=== PATIENT | female | born 2000 | race Caucasian/White ===

== ENCOUNTER 2020-08-26 16:57 | Emergency (ER) | payer OTHER ==
[~2020-08-26] VITALS: Ht 175.3 cm; Wt 127.0 kg
[2020-08-26 17:21] VITALS: BP 124/69
--- NOTE | 2020-08-26 18:08 | PHYS DOC ---
Past History Past Medical History: Depression, Diabetes, Hypothyroid (KARI JOYNER APRN) Past Surgical History: No Surgical History (KARI JOYNER APRN) Alcohol Use: None (KARI JOYNER APRN) General Adult EDM: Chief Complaint: SORE THROAT HPI: HPI: Patient is a 20-year-old female who presents with sore throat for 2 days. 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 Patient also has a history of seasonal allergies. Patient is reporting a cough and some nasal drainage. Denies fever. Denies shortness of breath. (KARI JOYNER APRN) Review of Systems: Review of Systems: Constitutional: Denies fever or chills Eyes: Denies change in visual acuity HENT: Reports nasal congestion and sore throat Respiratory: Reports cough, denies shortness of breath Cardiovascular: Denies chest pain or edema GI: Denies abdominal pain, nausea, vomiting, bloody stools or diarrhea : Denies dysuria Musculoskeletal: Denies back pain or joint pain Integument: Denies rash Neurologic: Denies headache, focal weakness or sensory changes Endocrine: Denies polyuria or polydipsia Lymphatic: Denies swollen glands Psychiatric: Denies depression or anxiety (KARI JOYNER APRN) Allergies: Allergies: Allergies Coded Allergies Type Severity Reaction Last Updated Verified azithromycin Allergy Intermediate 08/26/20 Yes (KARI JOYNER APRN) Physical Exam: PE: Constitutional: Well developed, well nourished, no acute distress, non-toxic appearance. [] HENT: Normocephalic, atraumatic, bilateral external ears normal, oropharynx moist, no oral exudates, nose normal. [] Eyes: PERRLA, EOMI, conjunctiva normal, no discharge. [] Neck: Normal range of motion, no tenderness, supple, no stridor. [] Cardiovascular:Heart rate regular rhythm, no murmur [] Lungs & Thorax: Bilateral breath sounds clear to auscultation [] Abdomen: Bowel sounds normal, soft, no tenderness, no masses, no pulsatile masses. [] Skin: Warm, dry, no erythema, no rash. [] Back: No tenderness, no CVA tenderness. [] Extremities: No tenderness, no cyanosis, no clubbing, ROM intact, no edema. [] Neurologic: Alert and oriented X 3, normal motor function, normal sensory function, no focal deficits noted. [] Psychologic: Affect normal, judgement normal, mood normal. [] (KARI JOYNER APRN) Current Patient Data: Vital Signs: Vital Signs Date Time Temp Pulse Resp B/P (MAP) Pulse Ox O2 Delivery O2 Flow Rate FiO2 08/26/20 17:21 98.1 85 16 124/69 (87) 96 Room Air (KARI JOYNER APRN) EKG: EKG: [] (KARI JOYNER APRN) Radiology/Procedures: Radiology/Procedures: [] (KARI JOYNER APRN) Heart Score: C/O Chest Pain: No Risk Factors: Risk Factors: DM, Current or recent (<one month) smoker, HTN, HLP, family history of CAD, obesity. Risk Scores: Score 0 - 3: 2.5% MACE over next 6 weeks - Discharge Home Score 4 - 6: 20.3% MACE over next 6 weeks - Admit for Clinical Observation Score 7 - 10: 72.7% MACE over next 6 weeks - Early Invasive Strategies (KARI JOYNER APRN) Course & Med Decision Making: Course & Med Decision Making Pertinent Labs and Imaging studies reviewed. (See chart for details) [] 20-year-old female presents with sore throat for 2 days after working at a youth [employer] for the last week. Afebrile. No oral exudates noted. No tonsillar swelling. Patient is handling her own secretions. Based on clinical assessment no recommendation for strep test. Discussed with patient that symptoms are bas ed on her yelling over the last week at [employer] camp and also her seasonal allergies. Advised patient to gargle with warm salt water, use OTC throat spray, cough drops, and allergy medication. Patient should follow up with PCP or return to emergency room if she has worsening symptoms. Patient states that she understands. Patient and daughter both appreciative and okay with discharge plan. Patient is hemodynamically stable and able to ambulate out of the emergency room (KARI JOYNER APRN) Course & Med Decision Making I oversaw on the above date of service of this patient. This patient was evaluated, examined, treated, and dispositioned from the emergency department by the mid-level practitioner. Although I was working at the time and available for consultation, no assistance was requested and I did not see or immediately direct the care of this patient. I reviewed note and agree to findings, plan of care, and disposition as stated. Electronically signed, Kuldeep Gerard DO (KULDEEP GERARD DO) Melisa Disclaimer: Melisa Disclaimer: This electronic medical record was generated, in whole or in part, using a voice recognition dictation system. (KARI JOYNER APRN) Departure Departure: Impression: Primary Impression: Sore throat Disposition: HOME / SELF CARE / HOMELESS Condition: STABLE Referrals: PCP,UNKNOWN (PCP) Patient Instructions: Sore Throat, [id number] Additional Instructions: You were seen in the emergency room for sore throat and hoarseness. Your symptoms are most likely from you having to speak loudly at youth camp. You can gargle with warm salt water, use throat lozenges, [id number] throat spray. Mucinex will also be helpful in treating your allergy symptoms. Return to the emergency room if you have worsening symptoms or your symptoms do not improve in the next few days. EMERGENCY DEPARTMENT GENERAL DISCHARGE INSTRUCTIONS Thank you for coming to [facility] (ED) today and trusting us with you care. We trust that you had a positivie experience in our Emergency Department. If you wish to speak to the department management, you may call the director at [phone]. YOUR FOLLOW UP INSTRUCTIONS ARE FOLLOWS: 1. Do you have a private Doctor? If you do not have a private doctor, please ask for a resource list of physicians or clinics that may be able to assist you with follow up care. 2. The Emergency Physician has interpreted your x-rays. The X-Ray specialist will also review them. If there is a change in the findings, you will be notified in 48 hours when at all possible. 3. A lab test or culture has been done, your results will be reviewed and you will be notified if you need a change in treatment. ADDITIONAL INSTRUCTIONS AND INFORMATION: 1. Your care today has been supervised by a physician who is specially trained in emergency care. Many problems require more than one evaluation for a complete diagnosis and treatment. We recommend that you schedule your follow up appointment as recommended to ensure complete treatment of you illness or injury. If you are unable to obtain follow up care and continue to have a problem, or if your condition worsens, we recommend that you return to the ED. 2. We are not able to safely determine your condition over the phone nor are we able to give sound medical advice over the phone. For these safety reasons, if you call for medical advice we will ask you to come to the ED for further evaluation. 3. If you have any questions regarding these discharge instructions please call the ED at [phone]. SAFETY INFORMATION: In the interest of safety, wellness, and injury prevention; we encourage you to wear your sealbelt, if you smoke; quite smoking, and we encourage family to use a protective helmet for bicycling and other sporting events that present an increased risk for head injury. IF YOUR SYMPTOMS WORSEN OR NEW SYMPTOMS DEVELOP, OR YOU HAVE CONCERNS ABOUT YOUR CONDITION; OR IF YOUR CONDITION WORSENS WHILE YOU ARE WAITING FOR YOUR FOLLOW UP APPOINTMENT; EITHER CONTACT YOUR PRIMARY CARE DOCTOR, THE PHYSICIAN WHOSE NAME AND NUMBER YOU WERE GIVEN, OR RETURN TO THE ED IMMEDIATELY. KARI JOYNER APRN Aug 26, 2020 18:08 KULDEEP GERARD DO Aug 27, 2020 07:19
== END 2020-08-26 18:20 | disposition home or self-care (01) ==
LOC: ER 16:57
DX: J02.9 Acute pharyngitis, unspecified (principal); E11.9 Type 2 diabetes mellitus without complications; Z88.1 Allergy status to other antibiotic agents
CPT/HCPCS: 99282